=== PATIENT | male | born 1970 | race Caucasian/White ===

== ENCOUNTER 2017-07-28 15:47 | Emergency (ER) | payer BC ==
[2017-07-28] MEDS ORDERED: Pantoprazole 40 MG VIAL ONE (16:09)
[2017-07-28] MEDS ORDERED: Morphine 10 MG/ML VIAL ONE (16:09)
[2017-07-28] MEDS ORDERED: Mag-Al Plus 1200 MG/1200 MG/120 MG/30 ML UDCUP ONE (16:10)
[2017-07-28] MEDS ORDERED: Lidocaine Viscous Sol 2% 15 ml UD Cup ONE (16:11)
--- NOTE | 2017-07-28 16:25 | RAD ---
SINGLE VIEW OF THE CHEST: 07/28/17 COMPARISON: None. HISTORY: Epigastric abdominal pain FINDINGS: Single view of the chest shows a normal sized cardiomediastinal silhouette. There is no evidence of c onsolidation, mass, or pleural effusion. The bones are unremarkable. IMPRESSION: No evidence of acute cardiopulmonary disease. POS: [facility]
[2017-07-28 16:43] LABS: ALT (SGPT) 33 U/L (8-55); AST (SGOT) 19 U/L (5-34); Albumin 4.5 g/dL (3.5-5.0); Alkaline Phosphatase 80 U/L (40-150); Anion Gap 13 mmol/L (10-20); BUN (Urea Nitrogen) 13 mg/dL (8.9-20.6); Bilirubin, Total 0.6 mg/dL (0.2-1.2); CK (CPK) 111 U/L (30-200); Calc. Creatinine Clearance 0 mL/min (70-130); Calcium 9.2 mg/dL (7.8-10.44); Carbon Dioxide 23 mmol/L (22-29); Chloride 108 mmol/L (98-107); Estimated GFR-MDRD 78; Glucose 113 mg/dL (70-105); Lipase 35 U/L (8-78); Potassium 4.1 mmol/L (3.5-5.1); Protein, Total 7.5 g/dL (6.0-8.3); Sodium 140 mmol/L (136-145)
[2017-07-28 16:46] LABS: CKMB 0.6 ng/mL (0-6.6); Troponin I Less than 0.010 ng/mL (< 0.028)
[2017-07-28 16:51] LABS: Band 2 % (5-11); Eosinophils 3 % (0-10); Lymphocytes 16 % (21-51); MDiff Complete? YES; Mean Corpuscular HGB CONC 34.6 g/dL (32.0-36.0); Mean Corpuscular Hemoglobin 28.9 pg (27.0-31.0); Mean Corpuscular Volume 83.5 fl (80.0-94.0); Mean Platelet Volume 7.1 fL (7.4-10.4); Monocytes 8 % (0-10); Neutrophil 65 % (42-75); PLT Morphology Comment Appears Adequate; Platelet Count 336 thou/uL (130-400); RBC Distribution Width 10.9 % (11.5-14.5); RBC Morphology Normal; Reactive Lymphocytes 5 % (0-10); White Blood Cell (WBC) Count 8.7 thou/uL (4.8-10.8)
--- NOTE | 2017-07-28 18:59 | CT ---
ABDOMEN AND PELVIC CT NONCONTRAST: 07/28/17 CLINICAL HISTORY: Abdominal pain. Recent onset. FINDINGS: There is nonobstructive right nephrolithiasis. No hydronephrosis. There are calcifications of the spl een. Evaluation of the organs, lymph nodes and vasculature are limited without the presence of IV or enteric contrast. Nonspecific mild ectasia involving small bowel loops of the left central abdomen pr esent, with mild wall prominence, incompletely characterized. There is a slight degree of surrounding mesenteric haziness. No pneumoperitoneum or portal venous gas. Probable mild pleural based and subpl eural scarring/atelectasis at each lung base partially imaged. The unenhanced aorta is nonaneurysmal. There are prostate calcifications. No acute osseous pathology evident. IMPRESSION: Nonobstructive right nephrolithiasis. Nonspecific mild ectasia involving small bowel of the left mid to central abdomen with mild degree of surrounding mesenteric haziness. An entity such as lymphomatous involvement given associated mild mu ral prominence of this region, not excluded. Other etiology such as enteritis should be excluded clin ically. Given the history of abdominal pain, recommend clinical followup with gastroenterology consul [place]. POS: [facility]
== END 2017-07-28 17:55 | disposition home or self-care (01) ==
LOC: SCSER 15:47
DX: R10.13 Epigastric pain (principal); Z79.899 Other long term (current) drug therapy
CPT/HCPCS: 71045; 74176; 80053; 82553; 83690; 84484; 85025; 93005; 96374; 96375; C9113; J2270